=== PATIENT | female | born 1990 | race Caucasian/White ===

== ENCOUNTER → 2017-08-28 | Outpatient (CLI) | payer SELFPAY ==
--- NOTE | 2017-08-28 17:36 | Diagnostic Imaging Report ---
US NON OB PELVIS COMP/TRANSVAG TECHNIQUE: Transabdominal and transvaginal grayscale, color Doppler and pulse duplex imaging of the pelvis was performed. INDICATION: Pelvic pain with IUD. FINDINGS: The uterus measures 6.9 x 6.3 x 5.2 cm. The myometrium is normal in echogenicity without discrete mass. There is an echogenic linear IUD located within the endometrial canal in an appropriate position. The endometrium is obscured by the IUD. The right ovary measures 3.1 x 3.4 x 2.0 cm. The left ovary measures 4.6 x 3.1 x 2.1 cm. Both ovaries are physiologic in appearance with multiple small follicles present which are predominantly peripheral in position. Blood flow is seen in both ovaries on color doppler imaging. No suspicious adnexal mass or fluid collection. No free pelvic fluid. IMPRESSION: 1. IUD appropriately positioned in the endometrial canal. 2. Normal ovaries without torsion. Dictated by: Dictated on workstation # [id number]
== END ==
LOC: RAD 16:41
PROVIDERS: ATTEND Nurse Practitioner Family
DX: R10.2 Pelvic and perineal pain (principal); Z97.5 Presence of (intrauterine) contraceptive device
CPT/HCPCS: 76830; 76856

== ENCOUNTER → 2018-09-29 | Outpatient (CLI) | payer OTHER ==
[~2018-09-29] VITALS: Ht 167.6 cm; Wt 105.2 kg
[~2018-09-29] MED LIST: GADOBUTROL 7.5 MMOL/7.5 ML (GADAVIST) VIAL IV ONE; IOHEXOL 240 MGI/ML 20 ML (OMNIPAQUE) VIAL IV ONE
--- NOTE | 2018-09-29 10:34 | Diagnostic Imaging Report ---
Indication: Pre-MRI screening. Time of exam: 10:24 AM Impression: Two views of the orbits were obtained. No definite radiopaque orbital foreign body is detected. Dictated by: Dictated on workstation # [id number]
--- NOTE | 2018-09-29 10:52 | Diagnostic Imaging Report ---
Indication: Right shoulder injury and pain. Patient brought to fluoroscopy suite placed on table in a supine position. The skin of the right shoulder is prepped and draped usual sterile fashion. Small amount of 1% lidocaine was utilized for local anesthesia. A 20-gauge needle was advanced to the right shoulder at the rotator interval. 50 mL solution of iodinated contrast, normal saline and gadolinium was injected under fluoroscopic observation. Needle was withdrawn, hemostasis was obtained. Patient tolerated the procedure well and was sent to MRI in satisfactory condition. 17 seconds of fluoroscopy was utilized. Impression: Successful right shoulder injection of gadolinium contrast solution, using fluoroscopy. Dictated by: Dictated on workstation # [id number]
--- NOTE | 2018-09-29 15:19 | Diagnostic Imaging Report ---
MRI RT UPPER EXT JOINT WITH TECHNIQUE: Multiplanar, multisequence MR imaging of the right shoulder was performed with intra-articular contrast. COMPARISON: None available. INDICATION: Right shoulder pain after injury approximately three months ago. FINDINGS: Rotator cuff: No rotator cuff tear, tendinopathy, muscle atrophy or edema. Glenoid labrum: Glenoid labrum has a normal morphology and is without tear. No para-labral cyst. Long head of biceps: Long head of biceps is normally positioned within the bicipital groove. The intracapsular segment is intact. Bones and cartilage: Humeral head is normal in morphology without fracture or focal osseous lesion. No glenohumeral chondromalacia. The acromioclavicular joint is normal in alignment without significant degenerative change. Soft tissues: No proliferative synovitis or loose bodies in the glenohumeral joint. No MRI findings to suggest adhesive capsulitis. No fluid or inflammatory like signal within the subacromial/subdeltoid space to indicate bursitis. IMPRESSION: 1. No rotator cuff tear. 2. Glenoid labrum is normal. 3. Long head of biceps is intact. Dictated by: Dictated on workstation # [id number]
== END ==
LOC: RAD 10:06
PROVIDERS: ATTEND Nurse Practitioner
DX: Z01.818 Encounter for other preprocedural examination (principal); S46.811A Strain of other muscles, fascia and tendons at shoulder and upper arm level, right arm, initial encounter; S43.431D Superior glenoid labrum lesion of right shoulder, subsequent encounter
CPT/HCPCS: 23350; 70250; 73040; 73222

== ENCOUNTER → 2020-12-09 | Outpatient (CLI) | payer SELFPAY ==
[~2020-12-09] MED LIST changes: +CATHETER FLUSH 10 ML SYR IV PRN; -GADOBUTROL 7.5 MMOL/7.5 ML (GADAVIST) VIAL IV ONE; +HOLD METFORMIN - RECEIVED CONTRAST 20 ML VIAL IV SCH; -IOHEXOL 240 MGI/ML 20 ML (OMNIPAQUE) VIAL IV ONE; +IOHEXOL 350 MG/ML 100 ML (OMNIPAQUE 350) VIAL IV ONE; +NS 100 ML (IVPB) BAG IV ONE
[2020-12-09 16:26] LABS: BASOPHILS % (AUTO) 0 % (0-10); EOSINOPHILS % (AUTO) 3 % (0-10); HEMATOCRIT 40 % (35-52); HEMOGLOBIN 12.5 G/DL (11.5-16.0); LYMPHOCYTES % (AUTO) 22 % (12-44); MEAN CORPUSCULAR HEMOGLOBIN 26 PG (25-34); MEAN CORPUSCULAR HGB CONC 31 G/DL (32-36); MEAN CORPUSCULAR VOLUME 83 FL (80-99); MEAN PLATELET VOLUME 9.8 FL (7.4-10.4); MONOCYTES % (AUTO) 7 % (0-12); NEUTROPHILS % (AUTO) 69 % (42-75); PLATELET COUNT 425 10^3/uL (130-400); WHITE BLOOD COUNT 12.2 10^3/uL (4.3-11.0)
[2020-12-09 16:27] LABS: EOSINOPHILS # (AUTO) 0.3 10^3/uL (0.0-0.3); LYMPHOCYTES # (AUTO) 2.6 X 10^3 (1.0-4.0); MONOCYTES # (AUTO) 0.9 X 10^3 (0.0-1.0); NEUTROPHILS # (AUTO) 8.4 X 10^3 (1.8-7.8)
[2020-12-09 16:43] LABS: CREATININE SERUM 0.59 MG/DL (0.60-1.30); POTASSIUM 4.2 MMOL/L (3.6-5.0)
[2020-12-09 16:44] LABS: ALBUMIN 4.1 GM/DL (3.2-4.5); BILIRUBIN,TOTAL 0.2 MG/DL (0.1-1.0); CALCIUM 9.9 MG/DL (8.5-10.1); TOTAL PROTEIN 8.3 GM/DL (6.4-8.2)
--- NOTE | 2020-12-09 17:37 | Diagnostic Imaging Report ---
PROCEDURE: CT abdomen and pelvis with contrast. TECHNIQUE: Multiple contiguous axial images were obtained through the abdomen and pelvis after administration of intravenous contrast. Auto Exposure Controls were utilized during the CT exam to meet ALARA standards for radiation dose reduction. All CT scans use one or more of the following dose optimizing techniques: automated exposure control, MA and/or KvP adjustment based on patient size and exam type or iterative reconstruction. DATE: December 09, 2020. COMPARISON: None. INDICATION: 30-year-old female, left lower quadrant abdominal pain since yesterday. FINDINGS: The visualized portions of the lung bases are clear. The heart is not enlarged. There is no pericardial effusion. There is diffuse fatty infiltration of the liver. There is no identified focal liver lesion. The main, right, and left portal veins are patent. The gallbladder is unremarkable. There is no intrahepatic or extrahepatic bile duct dilation. The pancreas is unremarkable. The spleen is normal in size. The adrenal glands are unremarkable. Unremarkable appearance of the renal parenchyma. The urinary collecting systems are not distended. There is no identified renal or ureteral stone. The urinary bladder is unremarkable. There is a trace amount of free pelvic fluid which is possibly physiologic. Additional limited CT assessment of the uterus and adnexa is grossly unremarkable for patient age. The intestinal tract is not distended. The appendix is well-seen on axial image 70 and adjacent sequential images. There is no evidence of acute appendicitis. There is no free intraperitoneal air. There is no drainable fluid collection. There is no identified abnormally enlarged lymph node in the abdomen or pelvis meeting CT size criteria for adenopathy. There is no identified acute bony abnormality. IMPRESSION: CT ABDOMEN AND PELVIS. 1. No identified acute abnormality in the abdomen or pelvis. 2. Trace amount of free pelvic fluid which may be physiologic. 3. Diffuse fatty infiltration of the liver. Dictated by: Dictated on workstation # [id number]
== END ==
LOC: LAB FS 16:06
PROVIDERS: ATTEND Nurse Practitioner Family
DX: K76.0 Fatty (change of) liver, not elsewhere classified (principal)
CPT/HCPCS: 36415; 74177; 80053; 85025

== ENCOUNTER → 2022-03-01 | Outpatient (CLI) | payer OTHER | LOC: CARDFS 13:56 | PROVIDERS: ATTEND Physician Assistant | DX: R00.2 Palpitations (principal) | CPT/HCPCS: 93306 ==